=== PATIENT | male | born 1940 | race Caucasian/White ===

== ENCOUNTER 2023-03-15 13:20 | Outpatient (CLI) | payer MEDICARE, SELFPAY | END 2023-03-15 13:21 | disposition home or self-care (01) | LOC: FRMREF 13:44 | PROVIDERS: PCP Family Medicine; Visit Provider Family Medicine | DX: Z00.00 Encounter for general adult medical examination without abnormal findings (principal); I10 Essential (primary) hypertension | CPT/HCPCS: 80053 ==

== ENCOUNTER 2023-03-25 10:08 | Outpatient (CLI) | payer MEDICARE, SELFPAY ==
--- NOTE | 2023-03-25 11:00 | CRLHL7_ITS ---
For Patients: As a result of the Century Cures Act, medical imaging exams and procedure reports are released immediately into your electronic medical record. You may view this report before your referring provider. If you have questions, please contact your health care provider. Examination: US abdominal aorta Indication: Abdominal aortic aneurysm screening. Technique: Masterson scale and color Doppler images of the aorta and common iliac arteries are obtained. 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 Dictated by José Miguel Tomas MD @ 03/25/2023 11:22:07 AM (Electronically Signed)
== END 2023-03-25 10:09 | disposition home or self-care (01) ==
LOC: US 10:09
PROVIDERS: PCP Family Medicine; Visit Provider Family Medicine
DX: Z13.6 Encounter for screening for cardiovascular disorders (principal); I71.22 Aneurysm of the aortic arch, without rupture; Z87.891 Personal history of nicotine dependence
CPT/HCPCS: 76706

== ENCOUNTER 2023-06-10 08:15 | Outpatient (CLI) | payer MEDICARE, SELFPAY | END 2023-06-10 08:16 | disposition home or self-care (01) | LOC: NFLDREF 06-11 14:53 | PROVIDERS: PCP Family Medicine; Referring Provider Family Medicine; Visit Provider Family Medicine | DX: E78.5 Hyperlipidemia, unspecified (principal) | CPT/HCPCS: 80061 ==

== ENCOUNTER 2024-03-27 07:53 | Outpatient (CLI) | payer MEDICARE, SELFPAY | END 2024-03-27 07:54 | disposition home or self-care (01) | PROVIDERS: PCP Family Medicine; Visit Provider Family Medicine | DX: I10 Essential (primary) hypertension (principal) | CPT/HCPCS: 80053; 82043; 82570 ==

== ENCOUNTER 2025-03-27 10:18 | Outpatient (CLI) | payer MEDICARE, SELFPAY | END 2025-03-27 10:19 | disposition home or self-care (01) | PROVIDERS: PCP Family Medicine; Visit Provider Family Medicine | DX: E78.5 Hyperlipidemia, unspecified (principal); I10 Essential (primary) hypertension; R35.0 Frequency of micturition | CPT/HCPCS: 80053; 82043; 82570 ==